=== PATIENT | female | born 1980 | race Hispanic/Latino ===

== ENCOUNTER 2025-01-15 14:31 | Emergency (ER) | payer OTHER ==
[~2025-01-15] VITALS: Ht 154.9 cm; Wt 113.4 kg
[2025-01-15 14:40] VITALS: TEMP 98.3
[2025-01-15 14:57] LABS: BASOPHILS # (AUTO) 0.1 (0.0-0.1); BASOPHILS % 0.6 % (0.0-1.0); EOSINOPHILS # (AUTO) 1.6 (0.0-0.4); EOSINOPHILS % 11.1 % (0.0-6.0); HEMOGLOBIN 8.8 g/dL (12.0-16.0); LYMPHOCYTES # (AUTO) 3.5 (1.0-3.2); LYMPHOCYTES % 24.9 % (18.0-39.1); MEAN CORPUSCULAR HEMOGLOBIN 20.2 pg (28-32); MEAN CORPUSCULAR HGB CONC 29.3 g/dL (31-35); MONOCYTES # (AUTO) 0.8 (0.2-0.8); MONOCYTES % 5.8 % (4.4-11.3); NEUTROPHILS % 57.2 % (38.7-80.0); PLATELET COUNT 499 x10e3/uL (140-360); RED BLOOD COUNT 4.35 x10e6/uL (3.6-5.1); RED CELL DISTRIBUTION WIDTH 18.1 % (11.7-14.4); WHITE BLOOD COUNT 13.96 x10e3/uL (4.8-10.8)
[2025-01-15 15:23] LABS: ALBUMIN 3.5 g/dL (3.5-5.0); ALBUMIN/GLOBULIN RATIO 0.9 (0.8-2.0); ANION GAP 15.7 mmol/L (8-16); BILIRUBIN,TOTAL 0.2 mg/dL (0.2-1.2); CALCIUM 8.7 mg/dL (8.4-10.2); CREATININE, SERUM 0.7 mg/dL (0.57-1.11); POTASSIUM 3.7 mmol/L (3.5-5.1); TOTAL PROTEIN 7.2 g/dL (6.5-8.1)
[2025-01-15 15:30] VITALS: PULSE 89; RESP 16; O2SAT 100
[2025-01-15] MEDS ORDERED: LASIX40 MG PO (16:06)
== END 2025-01-15 16:15 | disposition home or self-care (01) ==
LOC: ER 14:37
DX: R60.9 Edema, unspecified (principal); D64.9 Anemia, unspecified; F17.210 Nicotine dependence, cigarettes, uncomplicated
CPT/HCPCS: 36415; 80053; 83880; 85025; 93005; 99284

== ENCOUNTER 2025-04-05 18:20 | Emergency (ER) | payer OTHER ==
[~2025-04-05] VITALS: Ht 154.9 cm; Wt 108.9 kg
[~2025-04-05 18:20] MED LIST: LASIX40 MG PO
[2025-04-05 18:29] VITALS: TEMP 98.8
[2025-04-05 19:14] LABS: LEUKOCYTE ESTERASE ,URINE NEGATIVE (NEGATIVE); PROTEIN,URINE DIPSTICK >=300 (NEGATIVE); URINE UROBILINOGEN 0.2 mg/dL (0.2 - 1)
[2025-04-05 19:18] LABS: PREGNANCY TEST, URINE NEGATIVE (NEGATIVE)
[2025-04-05 19:24] LABS: EPITHELIAL CELLS,URINE MODERATE /LPF; WBC,URINE (MAN) 0-5 /HPF (0-5)
[2025-04-05 19:33] LABS: CORONAVIRUS COVID-19 AG NEGATIVE (NEGATIVE)
[2025-04-05] MEDS ORDERED: AMOX TR-K CLV1 EAC2 PO (21:12)
[2025-04-05 21:20] VITALS: PULSE 80; RESP 16
[2025-04-05 21:34] VITALS: BP 149/113; RESP 16; O2SAT 100
[2025-04-05 21:37] LABS: HIV 1&2 AB SCREEN NON-REACTIVE (NONREACTIVE); HIV- 1 P24 AG SCREEN NON-REACTIVE (NONREACTIVE)
[2025-04-05] MEDS ORDERED: FLUCONAZOLE200 MG PO (21:52)
== END 2025-04-05 21:21 | disposition home or self-care (01) ==
LOC: ER 18:47
DX: J02.9 Acute pharyngitis, unspecified (principal); R30.0 Dysuria; M54.50 Low back pain, unspecified; R53.81 Other malaise; Z11.52 Encounter for screening for COVID-19; F17.210 Nicotine dependence, cigarettes, uncomplicated
CPT/HCPCS: 36415; 71046; 81001; 81025; 83518; 87070; 87390; 87426; 99284; G0433; G0435

== ENCOUNTER 2025-04-17 19:28 | Emergency (ER) | payer OTHER ==
[~2025-04-17] VITALS: Ht 154.9 cm; Wt 108.9 kg
[~2025-04-17 19:28] MED LIST changes: +AMOX TR-K CLV1 EAC2 PO; +FLUCONAZOLE200 MG PO
[2025-04-17 20:03] LABS: BASOPHILS % 0.6 % (0.0-1.0); EOSINOPHILS % 5.9 % (0.0-6.0); LYMPHOCYTES % 24.9 % (18.0-39.1); MONOCYTES % 5.5 % (4.4-11.3); NEUTROPHILS % 62.6 % (38.7-80.0); RED CELL DISTRIBUTION WIDTH 18.6 % (11.7-14.4)
[2025-04-17 20:17] LABS: EST GLOMERULAR FILTRATION RATE 97.0 ML/MIN (>=60)
[2025-04-17 20:33] LABS: LEUKOCYTE ESTERASE ,URINE NEGATIVE (NEGATIVE); PROTEIN,URINE DIPSTICK >=300 (NEGATIVE); URINE UROBILINOGEN 0.2 mg/dL (0.2 - 1)
[2025-04-17 20:45] LABS: EPITHELIAL CELLS,URINE MODERATE /LPF
[2025-04-17] MEDS: SODIUM CHLORIDE 0.9% 1000ML 1,000 ML IV ONE (21:37)
[2025-04-17] MEDS: ONDANSETRON HCL INJ 2MG/ML 2ML 2 MG/ML VIAL IV STA (21:37)
[2025-04-17] MEDS: KETOROLAC TROMETHAMINE 30 MG/ML VIAL IV STA (21:40)
[2025-04-17] MEDS ORDERED: IOPAMIDOL 370 MG/ML 100 ML INFUS..BTL INJ ONE (22:02)
[2025-04-18 01:51] VITALS: PULSE 76; RESP 16; TEMP 98.2
[2025-04-18] MEDS ORDERED: DICYCLOMINE HCL20 MG PO (02:04)
[2025-04-18] MEDS ORDERED: ONDANSETRON ODT4 MG SL (02:04)
[2025-04-18] MEDS ORDERED: PANTOPRAZOLE SO40 MG PO (02:04)
[2025-04-18 02:43] VITALS: BP 130/76; PULSE 71; RESP 17; TEMP 98.5; O2SAT 99
== END 2025-04-18 02:15 | disposition home or self-care (01) ==
LOC: ER 21:06
DX: R10.32 Left lower quadrant pain (principal); R10.13 Epigastric pain; N83.201 Unspecified ovarian cyst, right side; M54.50 Low back pain, unspecified; R11.0 Nausea; R35.0 Frequency of micturition; R53.83 Other fatigue
CPT/HCPCS: 36415; 74177; 80053; 81001; 81025; 83690; 85025; 99284; J1885; J2405; J2470; J7030; Q9967